=== PATIENT | female | born 1995 | race Caucasian/White ===

== ENCOUNTER 2023-01-22 22:00 | Emergency (ER) | payer OTHER ==
[2023-01-22 22:08] VITALS: RESP 18; TEMP 98; BMI 32.5
[2023-01-22 22:49] VITALS: BP 131/61; PULSE 82
[2023-01-23 00:07] LABS: EPI CELLS 8 /uL (0-25.1); HYALINE CASTS 0 /uL (0-3.1); URINE APPEARANCE CLOUDY; URINE BACTERIA 31 /uL (0-1359); URINE BILIRUBIN NEGATIVE (NEGATIVE); URINE COLOR YELLOW; URINE GLUCOSE (UA) NEGATIVE (NEGATIVE); URINE KETONE NEGATIVE (NEGATIVE); URINE LEUK ESTERASE NEGATIVE (NEGATIVE); URINE NITRITE NEGATIVE (NEGATIVE); URINE PROTEIN NEGATIVE (NEGATIVE); URINE RBC 4 /uL (0-23.9); URINE UROBILINOGEN 0.2 mg/dL (0.2-1.0); URINE WBC 13 /uL (0-25.8)
== END 2023-01-23 02:00 | disposition home or self-care (01) ==
LOC: JER 22:00
DX: O20.9 Hemorrhage in early pregnancy, unspecified (principal); O26.892 Other specified pregnancy related conditions, second trimester; R10.2 Pelvic and perineal pain; Z3A.27 27 weeks gestation of pregnancy
CPT/HCPCS: 76801-TC; 76817-TC; 81003; 99284-25

== ENCOUNTER 2023-03-22 10:00 | Inpatient (IN) | payer OTHER ==
[2023-03-22] MEDS ORDERED: AMPICILLIN SODIUM 2 GM VIAL ONE (10:40)
[2023-03-22] MEDS ORDERED: ELECTROLYTE-148 SOLN 500 ML IV ONE (10:44)
[2023-03-22] MEDS ORDERED: AMPICILLIN - 2 GM in SODIUM CHLORIDE 100 ML IVPB STA (10:49)
[2023-03-22 10:59] LABS: BASO % 0.4 % (0-2.0); EOS % 0.8 % (0-4.5); HEMATOCRIT 34.4 % (32.4-45.2); HEMOGLOBIN 11.4 GM/dL (10.7-15.3); LYMPH % 12.1 % (8-40); MCH 25.9 pg (25.7-33.7); MCHC 33.1 g/dl (32.0-36.0); MEAN CELL VOLUME 78.2 fl (80-96); MEAN PLT VOLUME 7.1 fl (7.5-11.1); NEUT % 80.7 % (42.8-82.8); PLATELET COUNT 295 10^3/uL (134-434); RDW 14.8 % (11.6-15.6); WHITE BLOOD COUNT 11.7 K/mm3 (4.0-10.0)
[2023-03-22] MEDS ORDERED: OXYTOCIN 20 UNITS in 0.9% NS 20 UNIT/1,000 ML INFUS.BAG IV ONE (11:07)
[2023-03-22 11:08] LABS: INR 1.03 (0.83-1.09)
[2023-03-22 11:11] LABS: ACTIVATED PTT 27.8 SECONDS (25.2-36.5)
[2023-03-22] MEDS ORDERED: IBUPROFEN 800 MG/8 ML IJ IVPB ONE (11:34)
[2023-03-22 11:48] LABS: POTASSIUM 3.4 mmol/L (3.5-5.1)
[2023-03-22 11:49] LABS: CALCIUM 8.9 mg/dL (8.5-10.1)
[2023-03-22 11:50] LABS: BLOOD UREA NITROGEN 5.6 mg/dL (7-18)
[2023-03-22 11:53] LABS: CREATININE 0.6 mg/dL (0.55-1.3)
[2023-03-22] MEDS ORDERED: ACETAMINOPHEN 325 MG TABLET (FP) PO PRN (12:08)
[2023-03-22] MEDS ORDERED: WITCH HAZEL 50% (TUCKS) 40 PAD/JAR PAD TP PRN (12:08)
[2023-03-22] MEDS ORDERED: METHYLERGONOVINE MALEATE 0.2 MG/1 ML AMP IM PRN (12:08)
[2023-03-22] MEDS ORDERED: BENZOCAINE 28 GM HEMORRHOIDAL OINTMENT TP PRN (12:08)
[2023-03-22] MEDS ORDERED: BENZOCAINE 20% 57 GM BOTTLE TP PRN (12:08)
[2023-03-22] MEDS ORDERED: BISACODYL 10 MG SUPP.RECT RC PRN (12:08)
[2023-03-22] MEDS ORDERED: OXYTOCIN 20 UNITS in 0.9% NS 20 UNIT/1,000 ML INFUS.BAG IV SCH (12:15)
[2023-03-22] MEDS ORDERED: ELECTROLYTE-148 SOLN 1,000 ML IV SCH (12:15)
[2023-03-22 12:51] VITALS: RESP 18
[2023-03-22 13:02] LABS: CORD BASE EXCESS -6.9 mmol/L (0-2); CORD HCO3 19.8 mmHg (20-29); CORD PCO2 43.9 mmHg (30-78); CORD pH 7.273 (7.14-7.44)
[2023-03-22 13:02] LABS: CORD BASE EXCESS -4.1 mmol/L (0-2); CORD HCO3 19.1 mmHg (20-29); CORD PCO2 30.4 mmHg (30-78); CORD pH 7.417 (7.14-7.44)
[2023-03-22 13:03] LABS: HIV INTERPRETATION NEGATIVE (NEGATIVE)
[2023-03-22 13:16] VITALS: BMI 34.2
[2023-03-22] MEDS ORDERED: IBUPROFEN 800 MG/8 ML IJ IVPB PRN (13:23)
[2023-03-22] MEDS ORDERED: AMPICILLIN - 1 GM in SODIUM CHLORIDE 100 ML IVPB SCH (15:00)
[2023-03-23 08:59] LABS: BASO % 0.3 % (0-2.0); EOS % 1.9 % (0-4.5); HEMATOCRIT 25.6 % (32.4-45.2); HEMOGLOBIN 8.5 GM/dL (10.7-15.3); LYMPH % 15.7 % (8-40); MCH 26.6 pg (25.7-33.7); MEAN CELL VOLUME 80.6 fl (80-96); MEAN PLT VOLUME 7.4 fl (7.5-11.1); MONO % 7.1 % (3.8-10.2); PLATELET COUNT 253 10^3/uL (134-434); RBC 3.18 M/mm3 (3.60-5.2); RDW 14.6 % (11.6-15.6); WHITE BLOOD COUNT 11.5 K/mm3 (4.0-10.0)
[2023-03-23] MEDS: IBUPROFEN 600 MG TABLET (FP) PO PRN ×2 (09:12→23:23)
[2023-03-23] MEDS: MAGNESIUM CITRATE 300 ML BOTTLE PO ONE ×2 (15:39→16:52)
[2023-03-23] MEDS ORDERED: MAGNESIUM OXIDE 400 MG TABLET (FP) PO ONE (16:50)
[2023-03-23] MEDS ORDERED: SENNOSIDES/DOCUSATE COMBO (SENNA PLUS) TABLET (UD) PO PRN (22:00)
[2023-03-24] MEDS: IBUPROFEN 600 MG TABLET (FP) PO PRN (06:16)
[2023-03-24 10:24] VITALS: BP 115/72; PULSE 106; TEMP 98.1
[2023-03-24] MEDS ORDERED: DOCUSATE SODIUM 100 MG CAPSULE (FP) PO PRN (10:30)
== END 2023-03-24 15:08 | disposition home or self-care (01) | DRG 560 ==
LOC: JDEL 10:00 → JLDR 10:30 → J3W 14:40
PROVIDERS: ADMIT Obstetrics & Gynecology; ATTEND Obstetrics & Gynecology
PROC: 10E0XZZ Delivery of Products of Conception, External Approach (ICD-10-PCS; principal; 2023-03-22)
DX: O62.3 Precipitate labor (principal); O69.81X0 Labor and delivery complicated by cord around neck, without compression, not applicable or unspecified; Z3A.36 36 weeks gestation of pregnancy; Z37.0 Single live birth; O75.89 Other specified complications of labor and delivery; M62.838 Other muscle spasm
CPT/HCPCS: 36415; 36600; 80048; 82803; 85025; 85610; 85730; 86780; 86850; 86900; 86901; 87070; 87186; 87205; 87389; 88307-TC; 93970-TC